=== PATIENT | male | born 1985 | race American Indian/Alaskan Native ===

== ENCOUNTER 2017-09-20 18:45 | Emergency (ER) | payer BC ==
[2017-09-20 20:38] LABS: Basophils # (Auto) 0.1 K/mm3 (0.0-0.1); Basophils % (Auto) 0.7 % (0.0-1.8); Eosinophils % (Auto) 0.1 % (0.0-4.3); Hematocrit 39.5 % (35.5-45.6); Hemoglobin 13.3 gm/dl (11.8-15.2); Lymphocytes # (Auto) 1.5 K/mm3 (1.2-5.4); Lymphocytes % (Auto) 21.6 % (13.4-35.0); Mean Corpuscular HGB Conc 34 % (32-34); Mean Corpuscular Hemoglobin 23 pg (28-32); Mean Corpuscular Volume 69 fl (84-94); Monocytes # (Auto) 0.7 K/mm3 (0.0-0.8); Monocytes % (Auto) 9.5 % (0.0-7.3); Platelet Count 167 K/mm3 (140-440); Red Blood Count 5.71 M/mm3 (3.65-5.03); Red Cell Distribution Width 14.3 % (13.2-15.2)
[2017-09-20 20:53] LABS: Bacteria,Urine 1+ /HPF (Negative); Bilirubin,Urine NEG (Negative); Blood,Urine NEG (Negative); Color,Urine Yellow (Yellow); Mucus,Urine 3+ /HPF
[2017-09-20 20:57] LABS: Alanine Aminotransferase 22 units/L (7-56); Albumin 4.4 g/dL (3.9-5); BUN/Creatinine Ratio 16; Blood Urea Nitrogen 16 mg/dL (9-20); Calcium 9.5 mg/dL (8.4-10.2); Hemolysis Index 5
[2017-09-20 21:00] LABS: Amphetamine Screen,Urine PRESUMPTIVE NEGATIVE; Benzodiazepines Screen,Urine PRESUMPTIVE NEGATIVE; Cocaine Screen,Urine PRESUMPTIVE NEGATIVE; Methadone Screen,Urine PRESUMPTIVE NEGATIVE; Opiate Screen,Urine PRESUMPTIVE NEGATIVE
--- NOTE | 2017-09-20 21:24 | Emergency Department Report ---
HPI - General Chief Complaint: Psych Time Seen by Provider: 09/20/17 20:08 - HPI HPI: Patient is a 32-year-old male who presents for evaluation of mental health. The patient was brought in via local PD after being found walking around without clothing. The patient only complains of feeling thirsty. He admits decreased sleeping and feeling constantly excited for the past one to 2 days. The patient denies fever, headache, unexplained weight loss or weight gain, heat or cold intolerance, skin, hair, or nail changes, neuro deficits, homicidal ideations, or auditory or visual hallucinations. ED Past Medical Hx - Past Medical History Previous Medical History?: No - Surgical History Past Surgical History?: No - Social History Smoking Status: Current Some Day Smoker Substance Use Type: None - Medications Home Medications: Home Medications Medication Instructions Recorded Confirmed Last Taken Type Unobtainable 09/20/17 09/20/17 Unknown History ED Review of Systems ROS: Stated complaint: MH EVAL Other details as noted in HPI Constitutional: denies: fever ENT: denies: throat or neck pain Respiratory: denies: cough, shortness of breath Cardiovascular: denies: chest pain Endocrine: denies unexplained weight loss or gain Gastrointestinal: denies: abdominal pain, nausea Genitourinary: denies: dysuria Musculoskeletal: denies: leg swelling Skin: denies: rash Neurological: denies: headache Hematological/Lymphatic: denies: easy bleeding or easy bruising Psych: denies sadness or hopelessness Physical Exam - Physical Exam Vital Signs: Vital Signs 09/20/17 09/20/17 19:41 19:46 Temperature 97.4 F L 98.9 F Pulse Rate 82 78 Respiratory 16 18 Rate Blood Pressure 151/95 Blood Pressure 144/79 [Left] O2 Sat by Pulse 98 99 Oximetry Physical Exam: General: well-nourished, well-developed, no acute distress Head: Normocephalic, atraumatic Eyes: normal sclera ENT: Mucous membranes are pink and moist Neck: trachea midline, neck supple, No neck stiffness, no cervical adenopathy Respiratory: Breath sounds equal bilaterally, no wheezing, rales, or rhonchi Cardio: S1 and S2 present, no murmurs, rubs, gallops, capillary refill is brisk Abdomen: Normoactive bowel sounds, soft abdomen, no rigidity, no guarding or rebound tenderness Chest WALL/Back: No tenderness to palpation of the chest wall, no CVA tenderness with percussion Musc: No pitting edema Skin: No rash Neuro: no facial drooping, normal speech Psych: Excited affect, delusional, poor insight, flight of ideas, bizarre behavior ED Course Vital Signs 09/20/17 09/20/17 19:41 19:46 Temperature 97.4 F L 98.9 F Pulse Rate 82 78 Respiratory 16 18 Rate Blood Pressure 151/95 Blood Pressure 144/79 [Left] O2 Sat by Pulse 98 99 Oximetry ED Medical Decision Making - Lab Data Result diagrams: 09/20/17 20:17 09/20/17 20:17 - Medical Decision Making The patient was seen and examined by myself. The patient is placed on a satellite project site monitor and continuous pulse ox. On initial evaluation, the patient was found to be in no distress. Labs are obtained. Lab results are grossly unremarkable. The patient is medically clear. Mental health is consulted. Mental health evaluates the patient and agrees that the patient is exhibiting signs consistent with acute psychosis. A 1013 is completed. The patient will be admitted to a psychiatric facility once bed placement is obtained. Critical care attestation.: If time is entered above; I have spent that time in minutes in the direct care of this critically ill patient, excluding procedure time. ED Disposition Clinical Impression: Acute psychosis Disposition: [id number]/TX-65 PSY HOSP/PSY UNIT Is pt being admited?: No Does the pt Need Aspirin: No Condition: Stable Referrals: PRIMARY CARE [Primary Care Provider] - 3-5 Days Time of Disposition: 21:22
[2017-09-20 21:27] LABS: Cannabinoid Screen,Urine PRESUMPTIVE POSITIVE
[2017-09-20] MEDS ORDERED: ATIVAN ONE (23:26)
[2017-09-20] MEDS: ATIVAN PO PRN (23:51)
[2017-09-21] MEDS: ATIVAN PO PRN (05:55)
--- NOTE | 2017-09-21 14:01 | Consultation ---
History of Present Illness - Reason for Consult Consult date: 09/21/17 Reason for consult: Mental Health Evaluation Requesting physician: YOSI HOLDEN - Chief Complaint Chief complaint: "Who are you" - History of Present Psychiatric Illness 32-year-old male who presents for evaluation of mental health. The patient was brought in via local PD after being found walking around without clothing. Today the patient is calm, but disorganized during the assessment. He stated that he haven't slept in 3 days. His story about how he ended up at the ER was not logical. He had to be redirected several times to keep him on topic. This patient isn't a good historian at this time. Medications and Allergies Allergies Allergy/AdvReac Type Severity Reaction Status Date / Time No Known Allergies Allergy Unverified 09/20/17 19:47 Home Medications Medication Instructions Recorded Confirmed Last Taken Type Unobtainable 09/20/17 09/20/17 Unknown History Active Meds: Active Medications Lorazepam (Ativan) 1 mg PO Q4H PRN PRN Reason: Anxiety Last Admin: 09/21/17 05:55 Dose: 1 mg Past psychiatric history - Past Medical History Past Medical History: No medical history Past Surgical History: No surgical history - past Psychiatric treatment and history psychiatric treatment history: The patient could not confirm or deny a psy hx and fam psy hx. - Social History Social history: lives with family Mental Status Exam - Vital signs Last Vital Signs Temp 98.9 F 09/20/17 19:46 Pulse 78 09/20/17 19:46 Resp 18 09/20/17 19:46 BP 144/79 09/20/17 19:46 Pulse Ox 99 09/20/17 19:46 - Exam Narrative exam: MSE: Appearance: calm, cooperative Behavior: regular eye contact Speech: regular rate and tone, hyper verbal Mood: euphoric Affect: congruent to mood Thought Process: disorganized Thought Content: denies SI/HI's and AVH's Motor Activity: ambulatory Cognition: A/O x 3 Insight: poor Judgment: poor Results Result Diagrams: 09/20/17 20:17 09/20/17 20:17 Abnormal lab results 09/20/17 09/20/17 09/20/17 Range/Units 20:17 20:17 20:17 RBC 5.71 H (3.65-5.03) M/mm3 MCV 69 L (84-94) fl MCH 23 L (28-32) pg [facility] % (Auto) 9.5 H (0.0-7.3) % Sodium 136 L (137-145) mmol/L Chloride 95.6 L (98-107) mmol/L Glucose 121 H (75-100) mg/dL Salicylates < 0.3 L (2.8-20.0) mg/dL Acetaminophen (10.0-30.0) ug/mL 09/20/17 Range/Units 20:17 RBC (3.65-5.03) M/mm3 MCV (84-94) fl MCH (28-32) pg [facility] % (Auto) (0.0-7.3) % Sodium (137-145) mmol/L Chloride (98-107) mmol/L Glucose (75-100) mg/dL Salicylates (2.8-20.0) mg/dL Acetaminophen < 5.0 L (10.0-30.0) ug/mL All other labs normal. Assessment and Plan Assessment and plan: Impression: Unspecified Mood DO with psy features. Today the patient is calm, but disorganized during the assessment. The patient positive for marijuana. The patient is manic. DDx: Bipolar DO, R/O Substance Induced Mood/Psychotic DO Recommendation/Plan: Continue 1013 with placement to inpatient psy services. Start Depakote 1000 mg PO HS once and 500 mg PO BID for mood. Will reassess patient in 24 hours to determine if a antipsychotic will be added to his medication regimen.
[2017-09-21 15:17] LABS: Lipase 27 units/L (13-60)
--- NOTE | 2017-09-22 13:15 | Progress Note ---
Subjective - Reason for Consult Consult date: 09/22/17 Reason for consult: Psychiatric Follow-up Evaluation - Chief Complaint Chief complaint: "Who are you" Mental Status Exam - Vital signs Last Vital Signs Temp 98.9 F 09/22/17 07:00 Pulse 78 09/22/17 07:00 Resp 12 09/22/17 07:15 BP 144/79 09/22/17 07:00 Pulse Ox 97 09/22/17 07:15
--- NOTE | 2017-09-23 13:01 | Progress Note ---
Subjective - Reason for Consult Consult date: 09/23/17 Reason for consult: Psychiatry Follow-up - Chief Complaint Chief complaint: "Hello" 32-year-old male who presents for evaluation of mental health. The patient was brought in via local PD after being found walking around without clothing. Today the patient is calm and cooperative during the assessment. The patient is more organized today. He still feels dehydration is what caused him to be naked and wander in public. He denies SI/HI's and AVH's. He denies taking any psy medications or seeing a psychiatrist in the past. Mental Status Exam - Vital signs Last Vital Signs Temp 97.8 F 09/23/17 10:00 Pulse 76 09/23/17 10:00 Resp 18 09/23/17 12:52 BP 117/64 09/23/17 10:00 Pulse Ox 98 09/23/17 12:52 - Exam Narrative exam: MSE: Appearance: calm, cooperative Behavior: regular eye contact Speech: regular rate and tone, hyper verbal Mood: "okay" Affect: congruent to mood Thought Process: circumstantial Thought Content: denies SI/HI's and AVH's Motor Activity: ambulatory Cognition: A/O x 3 Insight: variable Judgment: variable Assessment and Plan Impression: Unspecified Mood DO with psy features. Today the patient is calm and cooperative during the assessment. The patient positive for marijuana. The patient is manic DDx: Bipolar DO, R/O Substance Induced Mood/Psychotic DO Recommendation/Plan: Continue 1013 with placement to inpatient psy services. Gather collateral information. Start Depakote 500 mg PO BID for mood.
--- NOTE | 2017-09-24 11:55 | Progress Note ---
Subjective - Reason for Consult Consult date: 09/24/17 Reason for consult: Psychiatry Follow-up - Chief Complaint Chief complaint: "Hello" 32-year-old male who presents for evaluation of mental health. The patient was brought in via local PD after being found walking around without clothing. Today the patient is calm and cooperative during the assessment. Per collateral information from his brother Eugene Chand at [phone] he stated that his brother's mood has changed because of a most recent break up. He stated that his brother smokes marijuana often and has never showed behavior as he did prior to his arrival to the ER. The patient is adamant that dehydration was the cause of his behavior. He denies SI/HI's and AVH's. The patient stated that he took medication (Depakote) last night, but the MAR stated, "patient refused." Mental Status Exam - Vital signs Last Vital Signs Temp 97.3 F L 09/23/17 21:38 Pulse 79 09/24/17 10:48 Resp 16 09/23/17 21:38 BP 118/79 09/23/17 21:38 Pulse Ox 97 09/24/17 10:48 - Exam Narrative exam: MSE: Appearance: calm, cooperative Behavior: regular eye contact Speech: regular rate and tone, hyper verbal Mood: euphoric Affect: congruent to mood Thought Process: circumstantial Thought Content: denies SI/HI's and AVH's Motor Activity: ambulatory Cognition: A/O x 3 Insight: variable Judgment: variable Assessment and Plan Impression: Unspecified Mood DO with psy features. Today the patient is calm and cooperative during the assessment. The patient positive for marijuana. The patient is manic DDx: Bipolar DO, R/O Substance Induced Mood/Psychotic DO Recommendation/Plan: Continue 1013 with placement to [facility] today. Continue Depakote 500 mg PO BID for mood.
[2017-09-24 12:09] VITALS: BP 110/64
== END 2017-09-24 20:34 ==
LOC: EEVIPCON 18:45 → ED 18:45
DX: F23 Brief psychotic disorder (principal); F17.200 Nicotine dependence, unspecified, uncomplicated
CPT/HCPCS: 36415; 80048; 80053; 80307; 81001; 82150; 83690; 85025; 99285; G0480; 80320